=== PATIENT | male | born 1970 ===

== ENCOUNTER 2018-06-23 13:18 | Inpatient (IN) | payer OTHER ==
[~2018-06-23] VITALS: Ht 165.1 cm; Wt 69.4 kg
[2018-07-21] MEDS ORDERED: OXYC1TAB9 PO (08:32)
== END 2018-07-21 12:14 | disposition home or self-care (01) | DRG 330 ==
LOC: O/R 07-17 08:45 → SURH 07-17 08:45
PROVIDERS: Surgery
PROC: 0DTP4ZZ Resection of Rectum, Percutaneous Endoscopic Approach (ICD-10-PCS; 2018-07-17)
PROC: 07TC4ZZ Resection of Pelvis Lymphatic, Percutaneous Endoscopic Approach (ICD-10-PCS; 2018-07-17)
PROC: 0DBU4ZZ Excision of Omentum, Percutaneous Endoscopic Approach (ICD-10-PCS; 2018-07-17)
PROC: 0YQ64ZZ Repair Left Inguinal Region, Percutaneous Endoscopic Approach (ICD-10-PCS; 2018-07-17)
PROC: 0DJD8ZZ Inspection of Lower Intestinal Tract, Via Natural or Artificial Opening Endoscopic (ICD-10-PCS; 2018-07-17)
PROC: 0DTN4ZZ Resection of Sigmoid Colon, Percutaneous Endoscopic Approach (ICD-10-PCS; principal; 2018-07-17 17:15)
DX: C19 Malignant neoplasm of rectosigmoid junction (principal); K40.30 Unilateral inguinal hernia, with obstruction, without gangrene, not specified as recurrent; D64.89 Other specified anemias

== ENCOUNTER 2018-07-30 01:32 | Emergency (ER) | payer OTHER ==
[~2018-07-30] VITALS: Ht 165.1 cm; Wt 68.0 kg
[~2018-07-30 01:32] MED LIST: OXYC1TAB9 PO
== END 2018-07-30 07:24 | disposition home or self-care (01) ==
LOC: ER 01:32
DX: K59.09 Other constipation (principal)